=== PATIENT | female | born 1990 | race Caucasian/White ===

== ENCOUNTER → 2017-02-03 | Outpatient (CLI) | payer OTHER ==
[~2017-02-03] MED LIST: BIRTH CONTROL; HYDR-3989 PO
--- NOTE | 2017-02-03 12:32 | DI ---
Indication: ITS.REASON: S89.92XA L LEG INJURY; S99.912A L ANKLE INJURY ANKLE LEFT 3 VIEW Comparison: None Findings: There is an acute fracture of the distal fibula with minimal offset and associated soft tissue swelling. The tibia is intact. Impression: Minimally displaced fracture of the distal fibula with an intact distal tibia. .
--- NOTE | 2017-02-03 12:33 | DI ---
Indication: ITS.REASON: S89.92XA L LEG INJURY; S99.912A L ANKLE INJURY TIB-FIB LEFT 2 VIEW Comparison: Previous ankle view on today's date Findings: Patient again shows the minimally displaced fracture through the distal fibula. No additional acute fractures were noted. Proximally, no acute findings identified. Impression: Minimally displaced fracture through the distal fibula. .
--- NOTE | 2017-02-03 12:34 | DI ---
Indication: ITS.REASON: S89.92XA L LEG INJURY; S99.912A L ANKLE INJURY FOOT LEFT 3 VIEWS Comparison: Films of the ankle obtained concurrently Findings: Patient shows a fracture of the distal fibula. No acute fractures identified identified. Impression: Mildly displaced fracture of the distal fibula with no additional acute fractures of the foot. .
== END ==
LOC: IMA.CCC 11:41
PROVIDERS: ATTEND Nurse Practitioner
DX: S82.62XA Displaced fracture of lateral malleolus of left fibula, initial encounter for closed fracture (principal); W18.39XA Other fall on same level, initial encounter; Y93.51 Activity, roller skating (inline) and skateboarding; Y92.331 Roller skating rink as the place of occurrence of the external cause; Y99.9 Unspecified external cause status; M79.89 Other specified soft tissue disorders